=== PATIENT | male | born 1970 | race Caucasian/White ===

== ENCOUNTER 2017-02-13 16:43 | Observation (INO) | payer OTHER ==
--- NOTE | 2017-02-13 16:50 | PDOC ---
History of Present Illness - History of Present Illness Initial Comments: 02/13/17 16:53 The patient is a 46 year old male, with no significant past medical history, who presents to the emergency department with a cat bite to his right forearm sustained while in his home after his pet cat became startled from yelling yesterday at 10AM. The patient states the bite has become increasingly more red and painful. He also reports feeling like my elbow is stiffening. The patient reportedly used hydrogen peroxide on the bite. He states he has been icing the bite. The patient states he has owned the cat for two years and denies any abnormal behavior from the animal. He denies chest pain, shortness of breath, headache and dizziness. He denies fever, chills, nausea, vomit, diarrhea and constipation. He denies dysuria, frequency, urgency and hematuria. Allergies: penicillins <Kiarra Sultana - Last Filed: 02/13/17 16:53> <Rosey Esposito - Last Filed: 02/14/17 07:27> - General Chief Complaint: Bite Stated Complaint: RT ARM CAT BITE Past History <Kiarra Sultana - Last Filed: 02/13/17 16:53> - Suicide/Smoking/Psychosocial Hx Smoking Status: No Smoking History: Never smoked Number of Cigarettes Smoked Daily: 0 Hx Alcohol Use: No <Rosey Esposito - Last Filed: 02/14/17 07:27> - Past Medical History Allergies/Adverse Reactions: Allergies Allergy/AdvReac Type Severity Reaction Status Date / Time Penicillins Allergy Unknown Hives Verified 02/13/17 16:44 Home Medications: Ambulatory Orders Aspirin [ASA -] 81 mg PO WEEKLY PRN 02/13/17 Review of Systems - Review of Systems Able to Perform ROS?: Yes Comments:: 02/13/17 16:54 GENERAL/CONSTITUTIONAL: No fever or chills. No weakness. HEAD, EYES, EARS, NOSE AND THROAT: No change in vision. No ear pain or discharge. No sore throat. CARDIOVASCULAR: No chest pain or shortness of breath. RESPIRATORY: No cough, wheezing, or hemoptysis. GASTROINTESTINAL: No nausea, vomiting, diarrhea or constipation. GENITOURINARY: No dysuria, frequency, or change in urination. MUSCULOSKELETAL: No joint or muscle swelling or pain. No neck or back pain. SKIN: (+) redness and pain to cat bite on right forearm. NEUROLOGIC: No headache, vertigo, loss of consciousness, or change in strength/ sensation. ENDOCRINE: No increased thirst. No abnormal weight change. HEMATOLOGIC/LYMPHATIC: No anemia, easy bleeding, or history of blood clots. ALLERGIC/IMMUNOLOGIC: No hives or skin allergy. <Kiarra Sultana - Last Filed: 02/13/17 16:53> *Physical Exam - Physical Exam Comments: GENERAL: Awake, alert, and fully oriented, in no acute distress HEAD: No signs of trauma EYES: PERRLA, EOMI, sclera anicteric, conjunctiva clear ENT: Auricles normal inspection, hearing grossly normal, nares patent, oropharynx clear without exudates. Moist mucosa NECK: Normal ROM, supple, no lymphadenopathy, JVD, or masses LUNGS: Breath sounds equal, clear to auscultation bilaterally. No wheezes, and no crackles HEART: Regular rate and rhythm, normal S1 and S2, no murmurs, rubs or gallops ABDOMEN: Soft, nontender, normoactive bowel sounds. No guarding, no rebound. No masses EXTREMITIES: Normal range of motion, no edema. No clubbing or cyanosis. No cords, erythema, or tenderness NEUROLOGICAL: Cranial nerves II through XII grossly intact. Normal speech, normal gait SKIN: Warm, Dry, normal turgor. R forearm with large area of cellulitis surrounding 4 puncture hubbard, +lymphatic streaking. <Rosey Esposito - Last Filed: 02/14/17 07:27> ED Treatment Course - LABORATORY CBC & Chemistry Diagram: 02/13/17 17:28 02/13/17 17:28 <Rosey Esposito - Last Filed: 02/14/17 07:27> Medical Decision Making - Medical Decision Making Pt is s/p cat bite one day ago, now with rapidly worsening cellulitis, lymphatic streaking. He was covered with rocephin and flagyl in the ED. Cellulitis was outlined in pen to monitor progress. Cat is a known cat, no history of aggressive behavior, rabies is extremely unlikely (has been living in the house for 2 years). Admitted to hospitalist. <Rosey Esposito - Last Filed: 02/14/17 07:27> *DC/Admit/Observation/Transfer - Attestations Scribe Attestion: 02/13/17 16:55 Documentation prepared by Kiarra Sultana, acting as senior medical director for Rosey Esposito MD <Kiarra Sultana - Last Filed: 02/13/17 16:53> - Discharge Dispostion Admit: Yes <Rosey Esposito - Last Filed: 02/14/17 07:27> Diagnosis at time of Disposition: Cellulitis of forearm, right Cat bite of forearm Qualifiers: Encounter type: initial encounter Laterality: right Qualified Code(s): S51.851A - Open bite of right forearm, initial encounter - Discharge Dispostion Condition at time of disposition: Stable
[2017-02-13] MEDS ORDERED: CEFTRIAXONE 1 GM in DEXTROSE 5%-WATER - 50 ML IVPB ONE (16:52)
[2017-02-13] MEDS ORDERED: METRONIDAZOLE 500 MG PREMIXED 500 MG/100 ML MG IVPB ONE ×2 (16:52→17:34)
[2017-02-13] MEDS ORDERED: cefTRIAXone SODIUM 1 GM VIAL ONE (17:34)
[2017-02-13 17:50] LABS: BASO % 0.8 % (0-2.0); EOS % 0.5 % (0-4.5); HEMATOCRIT 46.1 % (35.4-49); HEMOGLOBIN 15.8 GM/dl (11.7-16.9); LYMPH % 19.7 % (8-40); MCHC 34.2 g/dl (32.0-35.9); MEAN CELL VOLUME 93.6 fl (80-96); MEAN PLT VOLUME 9.4 fl (7.5-11.1); MONO % 4.3 % (3.8-10.2); NEUT % 74.7 % (42.8-82.8); PLATELET COUNT 229 K/MM3 (134-434); RBC 4.92 M/mm3 (4.00-5.60); RDW 12.6 % (11.9-15.9); WHITE BLOOD COUNT 13.6 K/mm3 (4.0-10.8)
[2017-02-13 17:54] LABS: ALBUMIN 4.3 g/dl (3.5-5.0); ALK PHOS 103 U/L (32-92); ANION GAP 9 (8-16); BILIRUBIN,TOTAL 1.1 mg/dl (0.2-1.0); BLOOD UREA NITROGEN 14 mg/dl (7-18); CALCIUM 9.4 mg/dl (8.4-10.2); CHLORIDE 101 mmol/L (98-107); CO2 25 mmol/L (22-28); GLUCOSE,RANDOM 100 mg/dl (74-106); POTASSIUM 3.7 mmol/L (3.5-5.1); SGOT/AST 18 U/L (10-42); SGPT/ALT 13 U/L (10-40); SODIUM 135 mmol/L (136-145); TOT PROT 7.2 g/dl (6.4-8.3)
[2017-02-13] MEDS ORDERED: KETOROLAC TROMETHAMINE 30 MG/1 ML VIAL ONE (18:51)
[2017-02-13] MEDS ORDERED: KETOROLAC TROMETHAMINE 30 MG/1 ML VIAL IVPUSH ONE (18:51)
--- NOTE | 2017-02-13 20:18 | HP ---
CHIEF COMPLAINT: Increased Redness and swelling to R- Forearm s/p cat bite PCP: HISTORY OF PRESENT ILLNESS: This is a 46 y/o man with a past medical history of Anxiety. Who presents to the ED with redness, swelling, increased streaking to R- forearm since being bit by his mother's cat x1 day. Patient reports that the cat became startled and bit him. The patient reports having flexion and gripping difficulty yesterday, but notes improvement today. He reports increased tenderness to palpation to the lateral anterior aspect of his right forearm. The patient reports that the cat is an indoor cat, but he is unsure of the cat's vaccine status. The patient is not up to date with his Tetanus vaccine. He reports cleaning the wound with Hydrogen Peroxide and using Bacitracin. The patient denies fever, chills, cough, dizziness, SOB, CP, AP, N/V/D, constipation, dysuria. ER course was notable for: (1) WBC 13.6 (2) Xray right arm-pending (3) Recent Travel: None PAST MEDICAL HISTORY: Anxiety PAST SURGICAL HISTORY: Denies Social History: Smoking: Never Alcohol: Denies Drugs: Denies Family History: Non-contributory Allergies Penicillins Allergy (Unknown, Verified 02/13/17 16:44) Hives HOME MEDICATIONS: Home Medications Medication Instructions Recorded Aspirin [ASA -] 81 mg PO DAILY 02/13/17 REVIEW OF SYSTEMS CONSTITUTIONAL: Absent: fever, chills, diaphoresis, generalized weakness, malaise, loss of appetite, weight change HEENT: Absent: rhinorrhea, nasal congestion, throat pain, throat swelling, difficulty swallowing, mouth swelling, ear pain, eye pain, visual changes CARDIOVASCULAR: Absent: chest pain, syncope, palpitations, irregular heart rate, lightheadedness , peripheral edema RESPIRATORY: Absent: cough, shortness of breath, dyspnea with exertion, orthopnea, wheezing, stridor, hemoptysis GASTROINTESTINAL: Absent: abdominal pain, abdominal distension, nausea, vomiting, diarrhea, constipation, melena, hematochezia GENITOURINARY: Absent: dysuria, frequency, urgency, hesitancy, hematuria, flank pain, genital pain MUSCULOSKELETAL: Absent: myalgia, arthralgia, joint swelling, back pain, neck pain SKIN: redness, swelling, streaking to right forearm Absent: rash, itching, pallor HEMATOLOGIC/IMMUNOLOGIC: Absent: easy bleeding, easy bruising, lymphadenopathy, frequent infections ENDOCRINE: Absent: unexplained weight gain, unexplained weight loss, heat intolerance, cold intolerance NEUROLOGIC: Absent: headache, focal weakness or paresthesias, dizziness, unsteady gait, seizure, mental status changes, bladder or bowel incontinence PSYCHIATRIC: anxiety Absent: depression, suicidal or homicidal ideation, hallucinations. PHYSICAL EXAMINATION Vital Signs - 24 hr 02/13/17 16:43 Temperature 98.5 F Pulse Rate 78 Respiratory 20 Rate Blood Pressure 134/81 O2 Sat by Pulse 97 Oximetry (%) GENERAL: Awake, alert, and fully oriented, in no acute distress. HEAD: Normal with no signs of trauma. EYES: Pupils equal, round and reactive to light, extraocular movements intact, sclera anicteric, conjunctiva clear. No lid lag. EARS, NOSE, THROAT: Ears normal, nares patent, oropharynx clear without exudates. Moist mucous membranes. NECK: Normal range of motion, supple without lymphadenopathy, JVD, or masses. LUNGS: Breath sounds equal, clear to auscultation bilaterally. No wheezes, and no crackles. No accessory muscle use. HEART: Regular rate and rhythm, normal S1 and S2 without murmur, rub or gallop. ABDOMEN: Soft, nontender, not distended, normoactive bowel sounds, no guarding, no rebound, no masses. No hepatomegaly or splenomegaly. MUSCULOSKELETAL: Normal range of motion at all joints. No bony deformities or tenderness. No CVA tenderness. UPPER EXTREMITIES: 2+ pulses, warm, well-perfused. No cyanosis. No clubbing. No peripheral edema. LOWER EXTREMITIES: 2+ pulses, warm, well-perfused. No calf tenderness. No peripheral edema. NEUROLOGICAL: Cranial nerves II-XII intact. Normal speech. Gait not observed. PSYCHIATRIC: Cooperative. Good eye contact. Appropriate mood and affect. SKIN: +erythematous, 4 puncture wounds to the dorsal aspect of right forearm, non-fluctuant, tracking noted above outer parameter. Warm, dry, normal capillary refill. Laboratory Results - last 24 hr 02/13/17 02/13/17 17:28 17:28 WBC 13.6 H RBC 4.92 Hgb 15.8 Hct 46.1 MCV 93.6 MCH 32.0 MCHC 34.2 RDW 12.6 Plt Count 229 MPV 9.4 Neutrophils % 74.7 Lymphocytes % 19.7 Monocytes % 4.3 Eosinophils % 0.5 Basophils % 0.8 Sodium 135 L Potassium 3.7 Chloride 101 Carbon Dioxide 25 Anion Gap 9 BUN 14 Creatinine 1.0 Creat Clearance w eGFR > 60 Random Glucose 100 Calcium 9.4 Total Bilirubin 1.1 H AST 18 ALT 13 Alkaline Phosphatase 103 H Total Protein 7.2 Albumin 4.3 ASSESSMENT/PLAN: This is a 46 y/o man with a PMHx of Anxiety. Admitted for Cellulitis of R- forearm secondary to cat bite FEN - PO Fluids - Replete lytes prn - Regular Diet Code Status: Full Code Dispo: Obs Problem List - Problem (1) Cellulitis of forearm, right Assessment/Plan: - s/p Cat bite - Concerning for Pasturella Infection - Blood Cultures- pending - +Leukocytosis - Ceftriaxone, Metronidazole given in ED - Will add Levofloxacin and continue Metronidazole secondary to PCN allergy - Repeat CBC in am - Elevate extremity - Neuro checks - Monitor vitals - Motrin prn Code(s): L03.113 - CELLULITIS OF RIGHT UPPER LIMB (2) Cat bite of forearm Assessment/Plan: - See Above - Wound Care Code(s): S51.859A - OPEN BITE OF UNSPECIFIED FOREARM, INITIAL ENCOUNTER; W55.01XA - BITTEN BY CAT, INITIAL ENCOUNTER Qualifiers: Encounter type: initial encounter Laterality: right Qualified Code(s): S51.851A - Open bite of right forearm, initial encounter; W55.01XA - Bitten by cat, initial encounter; W55.01XA - Bitten by cat, initial encounter (3) Generalized anxiety disorder with panic attacks Assessment/Plan: - Patient reports being seen in the past at [facility] for psychotherapy, currently on no meds. - He reports having an increase in panic attacks and feeling anxious over the last 2 months - Appreciate Psych eval for recommendations - Ativan prn Code(s): F41.1 - GENERALIZED ANXIETY DISORDER; F41.0 - PANIC DISORDER [EPISODIC PAROXYSMAL ANXIETY] (4) DVT prophylaxis Assessment/Plan: - OOB - Lovenox SQ Code(s): [id number] - Visit type - Emergency Visit Emergency Visit: Yes ED Registration Date: 02/13/17 Care time: The patient presented to the Emergency Department on the above date and was hospitalized for further evaluation of their emergent condition. - New Patient This patient is new to me today: Yes Date on this admission: 02/13/17 - Critical Care Critical Care patient: No
[2017-02-13 20:54] VITALS: BMI 22.1
[2017-02-13] MEDS ORDERED: TETANUS AND DIPHTHERIA TOXOID 0.5 ML DISP.SYRIN IM ONE ×2 (23:05→23:45)
[2017-02-14] MEDS: METRONIDAZOLE 500 MG PREMIXED 500 MG/100 ML MG IVPB SCH ×2 (01:12→09:33)
[2017-02-14] MEDS: LORazepam 0.5 MG TABLET PO PRN (05:57)
--- NOTE | 2017-02-14 08:10 | PN ---
Physical Exam: SUBJECTIVE: Patient seen and examined at bedside. Currently afebrile, states has some pressure to site of right forearm but pain meds worked "alittle". He states the redness has decreased to a more "pink" color but the tenderness to touch continues and it spread slightly. The area was marked out and shows some minor extension (noted on beny out) OBJECTIVE: Vital Signs Period Temp Pulse Resp BP Sys/Boston Pulse Ox Last 24 Hr 98.4 F-98.7 F 62-78 17-20 109-134/76-81 97-99 GENERAL: The patient is awake, alert, and fully oriented, in no acute distress. some anxiety about needles per pt statement HEAD: Normal with no signs of trauma. LUNGS: Breath sounds equal, clear to auscultation bilaterally, no wheezes, no crackles, no accessory muscle use. HEART: Regular rate and rhythm, S1, S2 without murmur, rub or gallop. ABDOMEN: Soft, nontender, nondistended, normoactive bowel sounds, no guarding, no rebound, no hepatosplenomegaly, no masses. EXTREMITIES: 2+ pulses, warm, well-perfused, + right forearm dorsal noted to be marked with pen for size of cellulitis, 4 puncture hubbard from cat with scab, minor extension from marking now redrawn with pink/red coloring and warmth and swelling. edema. NEUROLOGICAL: Cranial nerves II through XII grossly intact. Normal speech, gait not observed. PSYCH: Normal mood, normal affect. SKIN: Warm, dry, normal turgo in general but noted cellulitis to upper right extremity Laboratory Results - last 24 hr 02/13/17 02/13/17 17:28 17:28 WBC 13.6 H RBC 4.92 Hgb 15.8 Hct 46.1 MCV 93.6 MCH 32.0 MCHC 34.2 RDW 12.6 Plt Count 229 MPV 9.4 Neutrophils % 74.7 Lymphocytes % 19.7 Monocytes % 4.3 Eosinophils % 0.5 Basophils % 0.8 Sodium 135 L Potassium 3.7 Chloride 101 Carbon Dioxide 25 Anion Gap 9 BUN 14 Creatinine 1.0 Creat Clearance w eGFR > 60 Random Glucose 100 Calcium 9.4 Total Bilirubin 1.1 H AST 18 ALT 13 Alkaline Phosphatase 103 H Total Protein 7.2 Albumin 4.3 Active Medications Generic Name Dose Route Start Last Admin Trade Name Freq PRN Reason Stop Dose Admin Enoxaparin Sodium 40 mg 02/14/17 10:00 Lovenox - SQ DAILY LAYLA Metronidazole 500 mg in 100 mls @ 100 mls/hr 02/14/17 02:00 02/14/17 01:12 Flagyl 500mg Premixed Ivpb - IVPB 100 mls/hr Q8H-IV LAYLA Administration Levofloxacin 500 mg in 100 mls @ 100 mls/hr 02/14/17 10:00 Levaquin 500 Mg Premixed Ivpb - IVPB DAILY LAYLA Ibuprofen 400 mg 02/14/17 01:00 Motrin - PO Q6H PRN PAIN Influenza Virus Vaccine Quadrival 60 mcg 02/14/17 10:00 Flulaval Quad [id number] IM 02/14/17 10:01 .ONCE ONE Lorazepam 1 mg 02/14/17 02:15 02/14/17 05:57 Ativan - PO 1 mg Q12H PRN Administration ANXIETY ASSESSMENT/PLAN: This 46 yr old male with recent cat bit by his mothers indoor cat (unknown vaccine history) developed cellulitis to the right upper forearm causing redness , swelling, pain and elevated white count 1. right arm cellulitis -received tetanus in ED -continue ABT -ID consult pending -elevate extremity -warm compress -pain meds, toradol for now -WBC elevated will trend 2. Severe anxiety -currently pt states anxiety is ok but nervous about needles and IV's -continue with ativan as needed -pending consult with psych 3. FEN -po hydration and nutrition 4. DVT/GI -lovenox -protonix 4. Admission for IV ABT for right arm cellulitis Visit type - Emergency Visit Emergency Visit: Yes ED Registration Date: 02/13/17 Care time: The patient presented to the Emergency Department on the above date and was hospitalized for further evaluation of their emergent condition. - New Patient This patient is new to me today: Yes Date on this admission: 02/14/17 - Critical Care Critical Care patient: No - Discharge Referral Referred to [facility] No
[2017-02-14 08:51] LABS: BASO % 0.8 % (0-2.0); EOS % 1.4 % (0-4.5); HEMATOCRIT 42.3 % (35.4-49); HEMOGLOBIN 13.8 GM/dl (11.7-16.9); LYMPH % 32.2 % (8-40); MCH 31.1 pg (25.7-33.7); MCHC 32.7 g/dl (32.0-35.9); MEAN PLT VOLUME 10.2 fl (7.5-11.1); MONO % 6.7 % (3.8-10.2); NEUT % 58.9 % (42.8-82.8); PLATELET COUNT 186 K/MM3 (134-434); RBC 4.45 M/mm3 (4.00-5.60); RDW 12.4 % (11.9-15.9); WHITE BLOOD COUNT 10.6 K/mm3 (4.0-10.8)
[2017-02-14 08:59] LABS: ANION GAP 7 (8-16); BLOOD UREA NITROGEN 14 mg/dl (7-18); CALCIUM 8.9 mg/dl (8.4-10.2); CHLORIDE 104 mmol/L (98-107); CO2 26 mmol/L (22-28); CREATININE 0.9 mg/dl (0.6-1.3); GLUCOSE,RANDOM 93 mg/dl (74-106); POTASSIUM 4.2 mmol/L (3.5-5.1); SODIUM 137 mmol/L (136-145)
[2017-02-14] MEDS: PANTOPRAZOLE 40 MG TABLET (FP) PO SCH (09:33)
[2017-02-14] MEDS: LEVOFLOXACIN 500 MG IVPB 500 MG/100 ML BAG IVPB SCH (09:34)
[2017-02-14] MEDS: ENOXAPARIN NA (PORCINE) 40 MG/0.4 ML DISP.SYRIN SQ SCH (09:34)
[2017-02-14] MEDS ORDERED: FLU VACCINE QUAD 60 MCG/0.5 ML (MDV 17-18) IM ONE (10:00)
--- NOTE | 2017-02-14 11:03 | PN ---
Progress Note (short form) - Note Progress Note: ID Full noted dictated Selected Entries 02/14/17 10:22 Temperature 98.5 F Pulse Rate 59 L Respiratory 18 Rate Blood Pressure 105/59 Microbiology Laboratory Tests 02/13/17 02/14/17 17:28 08:00 WBC 13.6 H 10.6 Hgb 15.8 13.8 D Hct 42.3 Plt Count 229 186 Assessment Infected cat bites with forearm cellulitis Plan Tdap if not given Given PCN urticaria Clinda and Levoflox IV and po at discharge fine ( many organisms may cause this in addition to Pasturella) Problem List - Problems (1) Cat bite of forearm Code(s): S51.859A - OPEN BITE OF UNSPECIFIED FOREARM, INITIAL ENCOUNTER; W55.01XA - BITTEN BY CAT, INITIAL ENCOUNTER Qualifiers: Encounter type: initial encounter Laterality: right Qualified Code(s): S51.851A - Open bite of right forearm, initial encounter; W55.01XA - Bitten by cat, initial encounter; W55.01XA - Bitten by cat, initial encounter
[2017-02-14] MEDS: IBUPROFEN 400 MG TABLET (FP) PO PRN ×2 (11:42→19:41)
--- NOTE | 2017-02-14 12:02 | CONS ---
DATE OF CONSULTATION: DATE OF DICTATION: 02/14/2017 This is a 46-year-old male with no significant past medical history, admitted to the hospital for management of an infected cat bite on his right forearm. This was sustained 2 days prior to admission and involved 2 bites on his anterior forearm from his mother's cat, which she has had as an indoor pet for 2 years. He subsequently developed pain, redness, and swelling in the forearm, for which he is now admitted. He did use hydrogen peroxide at home. He denied any fever or chills. He has no other significant past medical history and states that he is currently unemployed as a result of psychiatric issues stemming from an anxiety disorder. He is on no medications and has allergies to PENICILLIN manifesting as urticaria. SOCIAL HISTORY: Nonsmoker and he denies any drug use. Family history and review of systems noncontributory. PHYSICAL EXAMINATION: General: He was an alert male in no acute distress. Vital Signs: Temperature was 98.4, pulse 64, blood pressure 109/78, respirations 18. Neck: Supple without adenopathy. Lungs: Clear to percussion and auscultation. Heart: S1, S2. Regular rhythm without audible murmur. Abdomen: Soft, nontender, without organomegaly. Extremities: Diffuse swelling of the right mid forearm with confluent erythema above the wrist and below the elbow. Four puncture hubbard were noted, representing 2 cat bites and no fluctuance was evident. The white count was 13.6, hemoglobin 15.8, platelets 229. White count today 10.6. Chemistries within normal limits. ASSESSMENT: Infected cat bite. Multiple organisms may be responsible for this, including but not limited to Pasteurella; in addition, staphylococcus, streptococcus, and Pasturella anaerobes considered. He has a history of PENICILLIN urticaria and I am reluctant to give him a cephalosporin, therefore, will treat him for staphylococcus and streptococcus coverage with clindamycin intravenously. He is already on Levaquin, which will also cover Pasteurella and other gram-negative organisms. The drugs can be switched to their oral equivalents upon discharge once he is better , and an HIV test should be obtained for completeness screening. KENROY STORY M.D. [id number] [facility]
--- NOTE | 2017-02-14 15:41 | CON.PSY ---
Psychiatry Consult Chief Complaint: I have anxiety and panic attacks. I have financial prpoblems. Symptoms: reports: Anxiety, Panic Attacks - Previous Psychiatric Treatment Outpatient: More than 6 mos ago Inpatient: None - Previous Substance Abuse Treatment Outpatient: None Inpatient: None - Reason for Previous Treatment Reason for Previous Treatment: Anxiety or Panic Disorder - Current Medications Current Medications: Active Medications Enoxaparin Sodium (Lovenox -) 40 mg SQ DAILY [facility] Last Admin: 02/14/17 09:34 Dose: Not Given Escitalopram Oxalate (Lexapro -) 5 mg PO DAILY [facility] Levofloxacin (Levaquin 500 Mg Premixed Ivpb -) 500 mg in 100 mls @ 100 mls/hr IVPB DAILY [facility] Last Admin: 02/14/17 09:34 Dose: 100 mls/hr Clindamycin Phosphate (Cleocin 600 Mg Premix Ivpb -) 600 mg in 50 mls @ 100 mls /hr IVPB Q8H-IV [facility] Ibuprofen (Motrin -) 400 mg PO Q6H PRN PRN Reason: PAIN Last Admin: 02/14/17 11:42 Dose: 400 mg Lorazepam (Ativan -) 1 mg PO Q12H PRN PRN Reason: ANXIETY Last Admin: 02/14/17 05:57 Dose: 1 mg Pantoprazole Sodium (Protonix -) 40 mg PO DAILY [facility] Last Admin: 02/14/17 09:33 Dose: 40 mg - Allergies Allergies: Allergies Allergy/AdvReac Type Severity Reaction Status Date / Time Penicillins Allergy Unknown Hives Verified 02/13/17 16:44 - Current Living Status Usual Living Arrangement: With Parent - Current Mental Status Evaluation Appearance: Well Groomed Attitude: Cooperative - Affect Affect: Full Range Appropriateness: Appropriate to Content - Mood Mood: Anxious - Speech/Language Expressive: Coherent - Psychomotor Activity Psychomotor Activity: Normal - Thought Process Thought Process: Intact - Thought Content Hallucinations: Absent Delusions: Absent - Self Perception Self Perception: No Impairment - Cognition Attention: Alert Orientation: Time Memory, Immediate Recall: Intact Memory, Short Term: 3/3 Memory, Remote with Promptin/3 - Concentration Serial Sevens Intact: Yes Simple Calculations Intact: Yes - Abstraction Proverb Interpretation: Intact Judgement: Intact - Insight Insight: Intact - Impulse Control Impulse Control: Good Control - Suicidal Ideation Suicidal Ideation: No - Homicidal Ideation Homicidal Ideation: No Assessment/Plan Start Lexapro 5mg po od for panic Disorder Return to [facility].
[2017-02-14] MEDS: CLINDAMYCIN 600MG PREMIX IVPB 600 MG/50 ML BAG IVPB SCH (17:14)
[2017-02-15] MEDS: LORazepam 0.5 MG TABLET PO PRN (00:25)
[2017-02-15] MEDS: CLINDAMYCIN 600MG PREMIX IVPB 600 MG/50 ML BAG IVPB SCH ×2 (01:14→09:22)
[2017-02-15] MEDS: IBUPROFEN 400 MG TABLET (FP) PO PRN ×2 (01:50→09:23)
[2017-02-15 06:09] VITALS: TEMP 97.9
--- NOTE | 2017-02-15 09:02 | PN ---
Progress Note, Physician History of Present Illness: No c/o R forearm pain No fever/ chills Tolerating antibiotics w/o adverse rxn Afebrile WBC improved BC (-) - Current Medication List Current Medications: Active Medications Enoxaparin Sodium (Lovenox -) 40 mg SQ DAILY [facility] Last Admin: 02/14/17 09:34 Dose: Not Given Escitalopram Oxalate (Lexapro -) 5 mg PO DAILY [facility] Levofloxacin (Levaquin 500 Mg Premixed Ivpb -) 500 mg in 100 mls @ 100 mls/hr IVPB DAILY [facility] Last Admin: 02/14/17 09:34 Dose: 100 mls/hr Clindamycin Phosphate (Cleocin 600 Mg Premix Ivpb -) 600 mg in 50 mls @ 100 mls /hr IVPB Q8H-IV [facility] Last Admin: 02/15/17 01:14 Dose: 100 mls/hr Ibuprofen (Motrin -) 400 mg PO Q6H PRN PRN Reason: PAIN Last Admin: 02/15/17 01:50 Dose: 400 mg Lorazepam (Ativan -) 1 mg PO Q12H PRN PRN Reason: ANXIETY Last Admin: 02/15/17 00:25 Dose: 1 mg Pantoprazole Sodium (Protonix -) 40 mg PO DAILY [facility] Last Admin: 02/14/17 09:33 Dose: 40 mg - Objective Vital Signs: Vital Signs Temperature 97.9 F 02/15/17 06:00 Pulse Rate 72 02/15/17 06:00 Respiratory Rate 18 02/15/17 06:00 Blood Pressure 117/73 02/15/17 06:00 O2 Sat by Pulse Oximetry (%) 97 02/15/17 06:00 Constitutional: Yes: Thin Eyes: Yes: Conjunctiva Clear Cardiovascular: Yes: Regular Rate and Rhythm, S1, S2 Respiratory: Yes: CTA Bilaterally Gastrointestinal: Yes: Normal Bowel Sounds, Soft. No: Tenderness Extremities: Yes: Other (Puncture wounds R forearm without drainage Erythema resolved from traced-out area No swelling) Neurological: Yes: Pre-Existing Deficit Labs: CBC, BMP 02/14/17 08:00 02/14/17 08:00 Assessment/Plan Cellulitis R forearm-resolved S/P cat bite PCN allergy Substitute po levaquin 500mg qd + po clindamycin 300mg tid x 7d
[2017-02-15 09:15] LABS: BASO % 0.7 % (0-2.0); EOS % 1.4 % (0-4.5); HEMATOCRIT 44.8 % (35.4-49); HEMOGLOBIN 15.1 GM/dl (11.7-16.9); LYMPH % 27.9 % (8-40); MCHC 33.8 g/dl (32.0-35.9); MEAN CELL VOLUME 94.9 fl (80-96); MEAN PLT VOLUME 9.6 fl (7.5-11.1); MONO % 5.4 % (3.8-10.2); NEUT % 64.6 % (42.8-82.8); PLATELET COUNT 199 K/MM3 (134-434); RBC 4.73 M/mm3 (4.00-5.60); RDW 12.5 % (11.9-15.9); WHITE BLOOD COUNT 8.7 K/mm3 (4.0-10.8)
[2017-02-15] MEDS: LEVOFLOXACIN 500 MG IVPB 500 MG/100 ML BAG IVPB SCH (09:23)
[2017-02-15] MEDS: PANTOPRAZOLE 40 MG TABLET (FP) PO SCH (09:23)
[2017-02-15] MEDS: ENOXAPARIN NA (PORCINE) 40 MG/0.4 ML DISP.SYRIN SQ SCH (09:23)
[2017-02-15] MEDS ORDERED: ESCITALOPRAM OXALATE 10 MG TABLET (FP) PO SCH (10:00)
--- NOTE | 2017-02-15 10:12 | DS ---
Physical Exam: SUBJECTIVE: Patient seen and examined, denies any tactile fever, reports minimal pain to the right upper extremity OBJECTIVE: This is a 46 y/o man with a past medical history of Anxiety. Who presents to the ED with redness, swelling, increased streaking to R- forearm since being bit by his mother's cat x1 day. Patient reports that the cat became startled and bit him. The patient reports having flexion and gripping difficulty yesterday, but notes improvement today. He reports increased tenderness to palpation to the lateral anterior aspect of his right forearm. The patient reports that the cat is an indoor cat, but he is unsure of the cat's vaccine status. The patient is not up to date with his Tetanus vaccine. He reports cleaning the wound with Hydrogen Peroxide and using Bacitracin. The patient denies fever, chills, cough, dizziness, SOB, CP, AP, N/V/D, constipation, dysuria. ER course was notable for: (1) WBC 13.6 (2) Xray right arm-pending Vital Signs Period Temp Pulse Resp BP Sys/Boston Pulse Ox Last 24 Hr 97.5 F-99.0 F 59-72 18-18 105-140/59-74 95-99 PHYSICAL EXAM GENERAL: The patient is awake, alert, and fully oriented, in no acute distress. HEAD: Normal with no signs of trauma. EYES: PERRL, extraocular movements intact, sclera anicteric, conjunctiva clear. ENT: Ears normal, nares patent, oropharynx clear without exudates, moist mucous membranes. NECK: Trachea midline, full range of motion, supple. LUNGS: Breath sounds equal, clear to auscultation bilaterally, no wheezes, no crackles, no accessory muscle use. HEART: Regular rate and rhythm, S1, S2 without murmur, rub or gallop. ABDOMEN: Soft, nontender, nondistended, normoactive bowel sounds, no guarding, no rebound, no hepatosplenomegaly, no masses. EXTREMITIES: 2+ pulses, warm, well-perfused, no edema. RIGHT UPPER EXTREMITY: multiple punctures wounds noted, no erythema noted no induration no fluctance noted, no erythema extending passed markings, less than 3 second capillary refill, +3 radial pulse NEUROLOGICAL: Cranial nerves II through XII grossly intact. Normal speech, gait not observed. PSYCH: Normal mood, normal affect. SKIN: Warm, dry, normal turgor, no rashes or lesions noted. LABS Laboratory Results - last 24 hr 02/14/17 02/14/17 02/15/17 11:00 11:00 07:30 WBC 8.7 RBC 4.73 Hgb 15.1 Hct 44.8 MCV 94.9 MCH 32.0 MCHC 33.8 RDW 12.5 Plt Count 199 MPV 9.6 Neutrophils % 64.6 Lymphocytes % 27.9 Monocytes % 5.4 Eosinophils % 1.4 Basophils % 0.7 C-Reactive Protein 3.9 H HIV 1&2 Antibody Screen Negative HIV P24 Antigen Negative Microbiology 02/13/17 17:17 Blood - Peripheral Venous Blood Culture - Preliminary NO GROWTH OBTAINED AFTER 24 HOURS, INCUBATION TO CONTINUE FOR 4 DAYS. 02/13/17 17:00 Blood - Peripheral Venous Blood Culture - Preliminary NO GROWTH OBTAINED AFTER 24 HOURS, INCUBATION TO CONTINUE FOR 4 DAYS. HOSPITAL COURSE: 1. Right arm cellulitis secondary to cat bite, tetanus given in the ED, treated with levaquin and clindamycin (02/14/17 - 02/15/17), tetanus given in the emergency department, blood cultures are negative to date, Dr Neves/Tavo, infectious disease physician consulted and followed. no leukocytosis noted, patient is afebrile. 2. anxiety, denies any suicidal or homicidal ideation, Dr Ackerman, psychiatry consulted, patient was started on lexapro upon the recommendation of psyciatry. PLAN - discharge home on levaquin and clindamycin - follow up with Dr Ferdinand Frost for wound check Date of Admission:02/13/17 Date of Discharge: 02/15/17 Minutes to complete discharge: 45 Discharge Summary Reason For Visit: CAT BITE TO FOREARM,CELLULITIS OF RIGHT FOREARM Current Active Problems Cat bite of forearm (Acute) Cellulitis of forearm, right (Acute) DVT prophylaxis (Acute) Generalized anxiety disorder with panic attacks (Acute) Condition: Stable - Instructions - Home Medications Comprehensive Discharge Medication List: Ambulatory Orders Aspirin [ASA -] 81 mg PO WEEKLY PRN 02/13/17 This patient is new to me today: Yes Date on this admission: 02/15/17 Emergency Visit: Yes ED Registration Date: 02/13/17 Care time: The patient presented to the Emergency Department on the above date and was hospitalized for further evaluation of their emergent condition. Critical Care patient: No - Discharge Referral Referred to [facility] No
[2017-02-15 10:16] LABS: ALBUMIN 3.8 g/dl (3.5-5.0); ALK PHOS 90 U/L (32-92); ANION GAP 8 (8-16); BLOOD UREA NITROGEN 16 mg/dl (7-18); CALCIUM 9.2 mg/dl (8.4-10.2); CHLORIDE 104 mmol/L (98-107); CO2 26 mmol/L (22-28); CREATININE 1.1 mg/dl (0.6-1.3); GLUCOSE,RANDOM 124 mg/dl (74-106); POTASSIUM 4.3 mmol/L (3.5-5.1); SGOT/AST 16 U/L (10-42); SGPT/ALT 13 U/L (10-40); SODIUM 138 mmol/L (136-145); TOT PROT 6.4 g/dl (6.4-8.3)
[2017-02-15 12:04] VITALS: BP 115/61; PULSE 77
[2017-02-15 13:31] LABS: BILIRUBIN,TOTAL 0.6 mg/dl (0.2-1.0)
== END 2017-02-15 11:43 | disposition home or self-care (01) ==
LOC: FER 16:43 → FM/S 18:51 → INTOOBSV 18:51 → OBSVTOIN 23:12 → INTOOBSV 23:12
PROVIDERS: ADMIT Hospitalist; ATTEND Nurse Practitioner Family
PROC: 3E03329 Introduction of Other Anti-infective into Peripheral Vein, Percutaneous Approach (ICD-10-PCS; principal; 2017-02-13)
PROC: 3E0334Z Introduction of Serum, Toxoid and Vaccine into Peripheral Vein, Percutaneous Approach (ICD-10-PCS; 2017-02-13)
PROC: 3E0333Z Introduction of Anti-inflammatory into Peripheral Vein, Percutaneous Approach (ICD-10-PCS; 2017-02-13)
DX: L03.113 Cellulitis of right upper limb (principal); S51.851A Open bite of right forearm, initial encounter; W55.01XA Bitten by cat, initial encounter; Y93.9 Activity, unspecified; Y92.009 Unspecified place in unspecified non-institutional (private) residence as the place of occurrence of the external cause; F41.1 Generalized anxiety disorder; Z88.0 Allergy status to penicillin
CPT/HCPCS: 36415; 73090-TC-RT; 80048; 80053; 85025; 86140; 87040; 87389; 90471; 90688; 96365; 96375; 99282-25; G0378

== ENCOUNTER 2019-11-23 10:41 | Emergency (ER) | payer OTHER ==
--- OUTSIDE RECORDS SUMMARY | 2019-11-23 10:47 | XMS ---
:1970 Author Organization [facility] Care Team Providers Name Role Phone Svitlana [place] Unavailable Unavailable Re-disclosure Warning The records that you are about to access may contain information from federally- assisted alcohol or drug abuse programs. If such information is present, then the following federally mandated warning applies: This information has been disclosed to you from records protected by federal confidentiality rules (42 CFR part 2). The federal rules prohibit you from making any further disclosure of this information unless further disclosure is expressly permitted by the written consent of the person to whom it pertains or as otherwise permitted by 42 CFR part 2. A general authorization for the release of medical or other information is NOT sufficient for this purpose. The Federal rules restrict any use of the information to criminally investigate or prosecute any alcohol or drug abuse patient.The records that you are about to access may contain highly sensitive health information, the redisclosure of which is protected by Article 27-F of the [facility] Public Health law. If you continue you may haveaccess to information: Regarding HIV / AIDS; Provided by facilities licensed or operated by the [facility] Office of Mental Health; or Provided by the [facility] Office for People With Developmental Disabilities. If such information is present, then the following [facility] mandated warning applies: This information has been disclosed to you from confidential records which are protected by state law. State law prohibits you from making any further disclosure of this information without the specific written consent of the person to whom it pertains, or as otherwise permitted by law. Any unauthorized further disclosure in violation of state law may result in a fine or half-way sentence or both. A general authorization for the release of medical or other information is NOT sufficient authorization for further disclosure. Encounters Encounter Providers Location Date Indications Data Source(s ) U Attender: Svitlana Andrews 11/01/2017 [facility] ([facility] 02:00:00 PM EDT [facility] [place]) Medications Medication Brand Start Product Dose Route Administrative Pharmacy [facility] Indications Reaction Description Data Name Date Form Instructions Instructions Source(s) quetiapine CARELOGIC (quetiapine (Family ) 300 mg Services tablet of extended [place] release 24 r) hr quetiapine [facility] (quetiapine (Family ) 50 mg Services tablet of [place] r) gabapentin CAR[facility] (gabapentin (Family ) 300 mg Services capsule of [place] r) gabapentin CAREL[facility]IC (gabapentin (Family ) 300 mg Services capsule of [place] r) quetiapine CARELOGIC (quetiapine (Family ) 50 mg Services tablet of [place] r) quetiapine CARELOGIC (quetiapine (Family ) 300 mg Services tablet of extended [place] release 24 r) hr clonazepam [facility] (clonazepam (Family ) 0.5 mg Services tablet of [place] r) sertraline [facility] (sertraline (Family ) 100 mg Services tablet of [place] r) quetiapine CARELOGIC (quetiapine (Family ) 300 mg Services tablet of extended [place] release 24 r) hr quetiapine CARELOGIC (quetiapine (Family ) 50 mg Services tablet of [place] r) gabapentin CARELOGIC (gabapentin (Family ) 300 mg Services capsule of [place] r) sertraline CARELOGIC (sertraline (Family ) 100 mg Services tablet of [place] r) gabapentin CARELOGIC (gabapentin (Family ) 300 mg Services capsule of [place] r) quetiapine CARELOGIC (quetiapine (Family ) 50 mg Services tablet of [place] r) clonazepam CARELOG[facility] (clonazepam (Family ) 0.5 mg Services tablet of [place] r) quetiapine CARELOGIC (quetiapine (Family ) 300 mg Services tablet of extended [place] release 24 r) hr quetiapine CARELOGIC (quetiapine (Family ) 50 mg Services tablet of [place] r) clonazepam CARELOGIC (clonazepam (Family ) 0.5 mg Services tablet of [place] r) sertraline CARELOGIC (sertraline (Family ) 100 mg Services tablet of [place] r) gabapentin CARELOGIC (gabapentin (Family ) 300 mg Services capsule of [place] r) quetiapine CARELOGIC (quetiapine (Family ) 300 mg Services tablet of extended [place] release 24 r) hr gabapentin CARELOGIC (gabapentin (Family ) 300 mg Services capsule of [place] r) gabapentin CARELOGIC (gabapentin (Family ) 300 mg Services capsule of [place] r) sertraline CARELOGIC (sertraline (Family ) 100 mg Services tablet of [place] r) clonazepam CARELOGIC (clonazepam (Family ) 0.5 mg Services tablet of [place] r) quetiapine CARELOGIC (quetiapine (Family ) 50 mg Services tablet of [place] r) quetiapine CARELOGIC (quetiapine (Family ) 300 mg Services tablet of extended [place] release 24 r) hr quetiapine CARELOGIC (quetiapine (Family ) 50 mg Services tablet of [place] r) quetiapine CARELOGIC (quetiapine (Family ) 300 mg Services tablet of extended [place] release 24 r) hr sertraline CARELOGIC (sertraline (Family ) 100 mg Services tablet of [place] r) clonazepam CARELOGIC (clonazepam (Family ) 0.5 mg Services tablet of [place] r) quetiapine CARELOGIC (quetiapine (Family ) 300 mg Services tablet of extended [place] release 24 r) hr clonazepam CARELOGIC (clonazepam (Family ) 0.5 mg Services tablet of [place] r) quetiapine CARELOGIC (quetiapine (Family ) 50 mg Services tablet of [place] r) gabapentin CARELOGIC (gabapentin (Family ) 300 mg Services capsule of [place] r) sertraline CARELOGIC (sertraline (Family ) 100 mg Services tablet of [place] r) quetiapine CARELOGIC (quetiapine (Family ) 300 mg Services tablet of [place] r) Neurontin CARELOGIC (gabapentin (Family ) 300 mg Services capsule of [place] r) clonazepam CARELOGIC (clonazepam (Family ) 0.5 mg Services tablet of [place] r) sertraline CARELOGIC (sertraline (Family ) 100 mg Services tablet of [place] r) Insurance Providers Payer name Policy type Policy ID Covered Covered alliance party's Policy P leeroy / Coverage alliance party ID relationship to Jett Inf ormation type jett [employer] MEDICAID [id number] [place] Medicaid Self [facility] Surgeries/Procedures Procedure Description Date Indications Data Source(s) [address] 45-50 Min Regular 07/31/2019 [facility] ([facility] 12:00:00 AM EDT [facility]) [id number] 45-50 Min Regular 07/31/2019 CAR[facility] (Family [facility] 12:00:00 AM EDT Services [facility]) [id number] 45-50 Min Regular 07/27/2019 [facility] (Family [facility] 12:00:00 AM EDT Services [facility]) [phone] 45-50 Min Regular 07/27/2019 CAREL[facility] (Family [facility] 12:00:00 AM EDT Services [facility]) [phone] 45-50 Min Regular 06/29/2019 CAREL[facility] (Family [facility] 12:00:00 AM EDT Services [facility]) [phone] 45-50 Min Regular 06/29/2019 CAREL[facility] (Family Therapy 12:00:00 AM EDT Services [facility]) [phone] 45-50 Min Regular 06/29/2019 CAREL[facility] (Family [facility] 12:00:00 AM EDT Services [facility]) [id number] 45-50 Min Regular 06/26/2019 CAREL[facility] (Family [facility] 12:00:00 AM EDT Services [facility]) [phone] 45-50 Min Regular 06/26/2019 CAREL[facility] (Family Therapy 12:00:00 AM EDT Services [facility]) [id number] 45-50 Min Regular 06/26/2019 CARELOG[facility] (Family Therapy 12:00:00 AM EDT Services [facility]) [id number] 45-50 Min Regular 06/15/2019 CARELOG[facility] (Family Therapy 12:00:00 AM EDT Services [facility]) [phone] 45-50 Min Regular 06/15/2019 CARELOG[facility] (Family Therapy 12:00:00 AM EDT Services [facility]) [phone] 45-50 Min Regular 06/15/2019 CARELOG[facility] (Family Therapy 12:00:00 AM EDT Services [facility]) [id number] 45-50 Min Regular 06/12/2019 CARELOG[facility] (Family Therapy 12:00:00 AM EDT Services [facility]) [id number] 45-50 Min Regular 06/12/2019 CAREL[facility] (Family Therapy 12:00:00 AM EDT Services [facility]) [id number] 45-50 Min Regular 06/12/2019 CAREL[facility] (Family Therapy 12:00:00 AM EDT Services [facility]) [id number] 45-50 Min Regular 06/08/2019 CAREL[facility] (Family Therapy 12:00:00 AM EDT Services [facility]) [id number] 45-50 Min Regular 06/08/2019 CARELOG[facility] (Family Therapy 12:00:00 AM EDT Services [facility]) [address] 45-50 Min Regular 06/08/2019 CARELOG[facility] (Family [facility] 12:00:00 AM EDT Services [facility]) [id number] E and M-Established 06/07/2019 CARELOGI C (Family Client 3 12:00:00 AM EDT Services [facility]) [phone] E and M Add On-30 Min 06/07/2019 CARELO GIC (Family 12:00:00 AM EDT Services [facility]) [phone] E and M-Established 06/07/2019 CARELOGI C (Family Client 3 12:00:00 AM EDT Services [facility]) [phone] E and M Add On-30 Min 06/07/2019 CARELO GIC (Family 12:00:00 AM EDT Services [facility]) [phone] E and M-Established 06/07/2019 CARELOGI C (Family Client 3 12:00:00 AM EDT Services [facility]) [phone] E and M Add On-30 Min 06/07/2019 CARELO GIC (Family 12:00:00 AM EDT Services [facility]) [phone] 45-50 Min Regular 04/06/2019 CARELOG[facility] (Family Therapy 12:00:00 AM EST Services [facility]) [phone] 45-50 Min Regular 04/03/2019 CARELOG[facility] (Family Therapy 12:00:00 AM EST Services [facility]) [phone] 45-50 Min Regular 03/30/2019 CARELOG[facility] (Family Therapy 12:00:00 AM EST Services [facility]) [phone] 45-50 Min Regular 03/23/2019 CARELOGIC (Family Therapy 12:00:00 AM EST Services [facility]) [phone] 45-50 Min Regular 03/20/2019 CARELOGIC (Family Therapy 12:00:00 AM EST Services [facility]) [phone] 45-50 Min Regular 03/16/2019 CARELOGIC (Family Therapy 12:00:00 AM EST Services [facility]) [phone] 45-50 Min Regular 03/13/2019 CARELOGIC (Family Therapy 12:00:00 AM EST Services [facility])
--- NOTE | 2019-11-23 11:22 | TELE ---
HPI Do you have fever,cough or shortness of breath?: Yes - General Reason For Visit: COVID Time Seen by Provider: 11/23/19 11:17 History Source: Patient Exam Limitations: Clinical Condition - History of Present Illness Timing/Duration: momentarily, 1 week Severity: reports: moderate Associated Symptoms: reports: cough, fever/chills (improved), malaise. denies: diaphoresis, loss of appetite, nausea/vomiting, shortness of breath, weakness 11/23/19 11:18 Patient with no significant past medical history present to [facility] for Covid testing as a requirement to go to court. Patient reported had a fever overnight and has been having dry cough for the past week. Reported fever has improved this morning with no more fevers. Denies shortness of breath, palpitations, dizziness, nausea, vomiting. Denies any other symptoms. Patient report he has a court case in a few days and needs a negative Covid test to be able to go to court. Past History - Medical History Allergies/Adverse Reactions: Allergies Allergy/AdvReac Type Severity Reaction Status Date / Time Penicillins Allergy Unknown Hives Verified 02/13/17 16:44 Home Medications: Ambulatory Orders Aspirin [ASA -] 81 mg PO WEEKLY PRN 02/13/17 Clindamycin [Cleocin -] 300 mg PO TID #21 capsule 02/15/17 Escitalopram Oxalate [Lexapro -] 5 mg PO DAILY #30 tablet 02/15/17 levoFLOXacin [Levaquin -] 500 mg PO DAILY #7 tablet 02/15/17 Anemia: No Asthma: No Cancer: No Cardiac Disorders: No CVA: No COPD: No CHF: No Dementia: No Diabetes: No GI Disorders: No Disorders: No HTN: No Hypercholesterolemia: No Liver Disease: No Psychiatric Problems: Yes (ANXIETY,PANIC) Seizures: No Thyroid Disease: No - Psycho-Social/Smoking History Smoking Status: No Smoking History: Never smoked Have you smoked in the past 12 months: No Number of Cigarettes Smoked Daily: 0 Review of Systems - Review of Systems Able to Perform ROS?: Yes Limited Romansh proficient: No Constitutional: Yes: Chills, Fever, Malaise HEENTM: Yes: Symptoms Reported, See HPI, Nose Congestion. No: Eye Pain, Blurred Vision, Tearing, Recent change in vision, Double Vision, Cataracts, Ear Pain, Ocular Prothesis, Ear Discharge, Nose Pain, Tinnitus, Nose Bleeding, Hearing Loss, Throat Pain, Throat Swelling, Mouth Pain, Dental Problems, Difficulty Swallowing, Mouth Swelling, Other Respiratory: Yes: Symptoms reported, See HPI, Cough. No: Orthopnea, Shortness of Breath, SOB with Exertion, SOB at Rest, Stridor, Wheezing, Productive cough, Hemoptysis, Other Cardiac (ROS): No: Symptoms Reported, See HPI, Chest Pain, Edema, Irregular Heart Rate, Lightheadedness, Palpitations, Syncope, Chest Tightness, Other ABD/GI: No: Symptoms Reported, Nausea, Vomiting Musculoskeletal: No: Symptoms Reported Integumentary: No: Symptoms Reported, Rash Neurological: No: Symptoms reported, Headache, Dizziness All Other Systems: Reviewed and Negative *Physical Exam - Physical Exam General Appearance: Yes: Nourished, Appropriately Dressed. No: Apparent Distress HEENT: positive: Normal ENT Inspection Neck: negative: Supple Respiratory/Chest: negative: Respiratory Distress, Accessory Muscle Use Musculoskeletal: positive: Normal Inspection Extremity: positive: Normal Capillary Refill, Normal Inspection, Normal Range of Motion. negative: Cyanosis Integumentary: positive: Normal Color. negative: Cyanotic Neurologic: positive: Fully Oriented, Alert, Normal Mood/Affect, Normal Response, Motor Strength 5 - Medical Decision Making 11/23/19 11:20 Patient with no significant past medical history present to [facility] for Covid testing as a requirement to go to court. Patient reported had a fever overnight and has been having dry cough for the past week. Reported fever has improved this morning with no more fevers. Denies shortness of breath, palpitations, dizziness, nausea, vomiting. Denies any other symptoms. Patient report he has a court case in a few days and needs a negative Covid test to be able to go to court. Patient in no acute respiratory distress on exam. Discussed self quarantine instructions. Covid test ordered as per patient's request. Patient to go to [facility] testing [facility] today for Covid testing. Patient stable for discharge Discharge Diagnosis at time of Disposition: Encounter by telehealth for suspected COVID-19 - Referrals - Patient Instructions Discharge Instructions: [facility]-Coronavirus Instructions, [facility] COVID-19 Isolation Protocol - Discharge Disposition: HOME Condition at time of Disposition: Stable
== END 2019-11-23 11:23 | disposition home or self-care (01) ==
LOC: JVIRT 10:41
DX: Z03.818 Encounter for observation for suspected exposure to other biological agents ruled out (principal)
CPT/HCPCS: Q3014-GT

== ENCOUNTER 2019-11-23 14:59 | Emergency (ER) | payer OTHER ==
[2019-11-23 15:03] VITALS: BMI 24.3
[2019-11-23] MEDS ORDERED: ACETAMINOPHEN 1000 MG/100 ML VIAL (NON FORMULARY) IVPB ONE (15:09)
[2019-11-23] MEDS ORDERED: SODIUM CHLORIDE 1,000 ML IV STA (15:09)
[2019-11-23] MEDS ORDERED: ACETAMINOPHEN INJECTION 100 ML IVPB ONE (15:13)
[2019-11-23] MEDS ORDERED: ALBUTEROL SO4 2.5/IPRATROPIUM 0.5 INH SOL 3 ML VIAL.NEB. NEB ONE ×2 (15:15→15:16)
--- OUTSIDE RECORDS SUMMARY | 2019-11-23 15:19 | XMS ---
:1970 Author Organization [facility] Care Team Providers Name Role Phone Svitlana [...] is protected by Article 27-F of the [facility] Public Health law. If you continue you may haveaccess to information: Regarding HIV / AIDS; Provided by facilities licensed or operated by the [facility] Office of Mental Health; or Provided by the [facility] Office for People With Developmental Disabilities. If such information is present, then the following [facility] mandated warning applies: This information has been [...] law may result in a fine or nursing home sentence or both. A general authorization for the release of medical or other information is NOT sufficient authorization for further disclosure. Encounters Encounter Providers Location Date Indications Data Source(s ) U Attender: Svitlana Andrews 11/01/2017 [facility] ([facility] [place] 02:00:00 PM EDT [facility] [place]) Medications Medication Brand Start Product Dose Route [...] name Policy type Policy ID Covered Covered constitution party's Policy P leeroy / Coverage constitution party ID relationship to Jett Inf ormation type jett [employer] MEDICAID [id number] SP [id number] COMM PLAN [employer] MEDICAID [id number] SP [id number] COMM PLAN [place] Medicaid Self [facility] Healthcare Surgeries/Procedures Procedure Description Date Indications Data Source(s) [address] 45-50 Min Regular 07/31/2019 [facility] ([facility] 12:00:00 AM EDT Services [facility]) [phone] 45-50 Min Regular 07/31/2019 [facility] (Family [facility] 12:00:00 AM EDT Services [facility]) [id number] 45-50 Min Regular 07/27/2019 [facility] (Family [facility] 12:00:00 AM EDT Services [facility]) [id number] 45-50 Min Regular 07/27/2019 [facility] (Family Therapy 12:00:00 AM EDT Services [facility]) [id number] 45-50 Min Regular 06/29/2019 [facility] (Family Therapy 12:00:00 AM EDT Services [facility]) [id number] 45-50 Min Regular 06/29/2019 [facility] (Family [facility] 12:00:00 AM EDT Services [facility]) [id number] 45-50 Min Regular 06/29/2019 [facility] (Family Therapy 12:00:00 AM EDT Services [facility]) [id number] 45-50 Min Regular 06/26/2019 [facility] (Family Therapy 12:00:00 AM EDT Services [facility]) [phone] 45-50 Min Regular 06/26/2019 [facility] (Family Therapy 12:00:00 AM EDT Services [facility]) [id number] 45-50 Min Regular 06/26/2019 [facility] (Family Therapy 12:00:00 AM EDT Services [facility]) [id number] 45-50 Min Regular 06/15/2019 [facility] (Family Therapy 12:00:00 AM EDT Services [facility]) [id number] 45-50 Min Regular 06/15/2019 [facility] (Family Therapy 12:00:00 AM EDT Services [facility]) [id number] 45-50 Min Regular 06/15/2019 [facility] (Family Therapy 12:00:00 AM EDT Services [facility]) [phone] 45-50 Min Regular 06/12/2019 [facility] (Family Therapy 12:00:00 AM EDT Services [facility]) [id number] 45-50 Min Regular 06/12/2019 [facility] (Family Therapy 12:00:00 AM EDT Services [facility]) [id number] 45-50 Min Regular 06/12/2019 [facility] (Family Therapy 12:00:00 AM EDT Services [facility]) [id number] 45-50 Min Regular 06/08/2019 [facility] (Family Therapy 12:00:00 AM EDT Services [facility]) [id number] 45-50 Min Regular 06/08/2019 [facility] (Family Therapy 12:00:00 AM EDT Services [facility]) [id number] 45-50 Min Regular 06/08/2019 [facility] (Family Therapy 12:00:00 AM EDT Services [facility]) [id number] E and M-Established 06/07/2019 CAREL[facility]I C (Family Client 3 12:00:00 AM EDT Services [facility]) [id number] E and M Add On-30 Min 06/07/2019 CARELO GIC (Family 12:00:00 AM EDT Services [facility]) [phone] E and M-Established 06/07/2019 [facility] C (Family Client 3 12:00:00 AM EDT Services [facility]) [phone] E and M Add On-30 Min 06/07/2019 [facility]ELO G[facility] (Family 12:00:00 AM EDT Services [facility]) [phone] E and M-Established 06/07/2019 CAREL[facility]I C (Family Client 3 12:00:00 AM EDT Services [facility]) [id number] E and M Add On-30 Min 06/07/2019 [facility]ELO GIC (Family 12:00:00 AM EDT Services [facility]) [phone] 45-50 Min Regular 04/06/2019 [facility] (Family Therapy 12:00:00 AM EST Services [facility]) [id number] 45-50 Min Regular 04/03/2019 [facility] (Family Therapy 12:00:00 AM EST Services [facility]) [phone] 45-50 Min Regular 03/30/2019 [facility] (Family Therapy 12:00:00 AM EST Services [facility]) [phone] 45-50 Min Regular 03/23/2019 [facility] (Family Therapy 12:00:00 AM EST Services [facility]) [phone] 45-50 Min Regular 03/20/2019 [facility] (Family Therapy 12:00:00 AM EST Services [facility]) [phone] 45-50 Min Regular 03/16/2019 [facility] (Family Therapy 12:00:00 AM EST Services [facility]) [phone] 45-50 Min Regular 03/13/2019 [facility] (Family Therapy 12:00:00 AM EST Services [facility])
--- NOTE | 2019-11-23 15:21 | PDOC ---
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 Pt reported x3 weeks ago he developed black diarrhea, x2 weeks ago an intermittently productive yellow cough (usually while laying down), and x1 week ago intermittent fevers. Pt reported his fevers range around 101F, occur in the mornings, and usually break by the afternoon. Pt admitted to shortness of breath, CASE, generalized weakness. Pt had one episode of nausea/vomiting x1 week ago. ROS General: admitted to fever, chills, generalized weakness. HEENT: denied sore throat, rhinorrhea, ear pain. Cardiovascular: denied chest pain, palpitations, syncope, diaphoresis. Respiratory: admitted to shortness of breath, cough, sputum production. denied hemoptysis. Gastrointestinal: admitted to nausea, vomiting, diarrhea, black stools. denied abdominal pain, constipation, blood in stool. Genitourinary: denied dysuria, increased urinary frequency, hematuria, urinary incontinence, flank pain. Back: denied back pain. Musculoskeletal: denied joint pain, muscle pain, joint swelling. Neurological: denied headache, dizziness, numbness, tingling, weakness. Integumentary: denied rash, laceration, abrasion. Hematologic/Lymphatic: denied bruising or bleeding. PE Constitutional: Well-nourished, Well-developed, appearing stated age. HEENT: head is normocephalic, atraumatic. EOMI. PERRLA. Neck: supple. Full ROM. Cardiovascular: regular heart rhythm. Normal S1 and S2. no murmurs. no pericardial friction rub. Respiratory: decreased air movement bilaterally. clear to auscultation bilaterally. no crackles, rhonchi or wheezing. no stridor. Gastrointestinal: soft, flat, nontender. normal bowel sounds. no rebound, guarding, or masses. Extremities: peripheral pulses intact and equal. no lower extremity edema noted. Neurological: CN 2-12 grossly intact. moves all four extremities. Psych: awake, alert, oriented x3. follows commands. answers questions appropriately. Past History - Medical History Allergies/Adverse Reactions: Allergies Allergy/AdvReac Type Severity Reaction Status Date / Time Penicillins Allergy Unknown Hives Verified 11/23/19 15:04 Home Medications: Ambulatory Orders Acetaminophen [Tylenol -] 1,000 mg PO Q8H PRN #30 tablet 11/23/19 Albuterol Sulfate Inhaler - [Ventolin HFA Inhaler -] 1 - 2 inh PO Q4H PRN #1 inhaler 11/23/19 Gabapentin 0 mg PO TID 11/23/19 clonazePAM [Klonopin -] 0.5 mg PO DAILY 11/23/19 - Psycho-Social/Smoking History Smoking Status: No Smoking History: Never smoked Have you smoked in the past 12 months: No Number of Cigarettes Smoked Daily: 0 - Substance Abuse Hx (Audit-C & DAST Scrn) How often the patient has a drink containing alcohol: Never Score: In Men: 4 or > Positive; In Women: 3 or > Positive: 0 Screen Result (Pos requires Nsg. Audit-10AR): Negative In the last yr the pt used illegal drug/Rx for NonMed reason: No Score: Yes response is considered Positive: 0 Screen Result (Positive result requires Nsg. DAST-10): Negative *Physical Exam - Vital Signs Last Vital Signs Temp Pulse Resp BP Pulse Ox 98.9 F 72 17 96/63 98 11/23/19 14:59 11/23/19 14:59 11/23/19 14:59 11/23/19 14:59 11/23/19 14:59 ED Treatment Course - LABORATORY CBC & Chemistry Diagram: 11/23/19 15:18 11/23/19 15:11 Medical Decision Making - Medical Decision Making 49 year old male with above PMH presented to ED for diarrhea x3 weeks, cough x2 weeks, fever x1 week, associated with SOB/CASE. Initial Vital Signs Temp Pulse Resp BP Pulse Ox 98.9 F 72 17 96/63 98 11/23/19 14:59 11/23/19 14:59 11/23/19 14:59 11/23/19 14:59 11/23/19 14:59 Afebrile. No tachycardia. No tachypnea. Mild hypotension. No hypoxia on room air. EKG sinus rhythm. 11/23/19 16:35 CXR reported no focal infiltrates or acute process. Laboratory Last Values WBC 14.2 K/mm3 (4.0-10.8) H 11/23/19 15:18 RBC 4.88 M/mm3 (4.00-5.60) 11/23/19 15:18 Hgb 15.3 GM/dl (11.7-16.9) 11/23/19 15:18 Hct 44.8 % (35.4-49) 11/23/19 15:18 MCV 91.8 fl (80-96) 11/23/19 15:18 MCH 31.4 pg (25.7-33.7) 11/23/19 15:18 MCHC 34.2 g/dl (32.0-35.9) 11/23/19 15:18 RDW 13.9 % (11.9-15.9) D 11/23/19 15:18 Plt Count 267 K/MM3 (134-434) D 11/23/19 15:18 MPV 9.0 fl (7.5-11.1) 11/23/19 15:18 Absolute Neuts (auto) 8.7 K/mm3 11/23/19 15:18 Neutrophils % 61.8 % (42.8-82.8) 11/23/19 15:18 Lymphocytes % 31.4 % (8-40) 11/23/19 15:18 Monocytes % 4.0 % (3.8-10.2) 11/23/19 15:18 Eosinophils % 2.4 % (0-4.5) 11/23/19 15:18 Basophils % 0.4 % (0-2.0) 11/23/19 15:18 PT with INR 13.5 SEC (10.2-13.0) H 11/23/19 15:11 INR 1.21 (0.82-1.09) 11/23/19 15:11 PTT (Actin FS) 33.1 SECONDS (25.2-36.5) 11/23/19 15:11 Sodium 136 mmol/L (136-145) 11/23/19 15:11 Potassium 4.1 mmol/L (3.5-5.1) 11/23/19 15:11 Chloride 104 mmol/L (98-107) 11/23/19 15:11 Carbon Dioxide 23 mmol/L (21-32) 11/23/19 15:11 Anion Gap 9 MMOL/L (8-16) 11/23/19 15:11 BUN 16.0 mg/dl (7-18) 11/23/19 15:11 Creatinine 1.0 mg/dl (0.55-1.3) 11/23/19 15:11 Est GFR (CKD-EPI)AfAm 100.55 11/23/19 15:11 Est GFR (CKD-EPI)NonAf 86.76 11/23/19 15:11 Random Glucose 79 mg/dl (74-106) 11/23/19 15:11 Calcium 9.0 mg/dl (8.5-10) 11/23/19 15:11 Phosphorus 3.2 mg/dl (2.5-4.9) 11/23/19 15:11 Magnesium 1.9 mg/dL (1.8-2.4) 11/23/19 15:11 Total Bilirubin 0.6 mg/dl (0.2-1) 11/23/19 15:11 AST 16 U/L (15-37) 11/23/19 15:11 ALT 15 U/L (13-61) 11/23/19 15:11 Alkaline Phosphatase 108 U/L (45-117) 11/23/19 15:11 LD Total 141 U/L (84-246) 11/23/19 15:11 Total Protein 6.5 g/dl (6.4-8.2) 11/23/19 15:11 Albumin 3.9 g/dl (3.4-5.0) 11/23/19 15:11 Leukocytosis without left shift. No electrolyte abnormalities. No SANDEEP. No transaminitis. Pt reported improvement of shortness of breath with MDI inhaler Ambulatory sats 89% on room air. Pt rested for a little while, then wanted to try again on the ambulation sats, then was able to ambulate at 96%. Pt offered admission, but reported he would prefer to go home and continue symptomatic treatment. Pt given return precautions, reported he understood. MDI presribed. Zofran prescribed. Discharge - Discharge Information Problems reviewed: Yes Clinical Impression/Diagnosis: Shortness of breath, Diarrhea, Cough Condition: Improved Disposition: HOME - Admission No - Additional Discharge Information Prescriptions: Acetaminophen [Tylenol -] 1,000 mg PO Q8H PRN #30 tablet PRN Reason: Fever Albuterol Sulfate Inhaler - [Ventolin HFA Inhaler -] 1 - 2 inh PO Q4H PRN #1 inhaler PRN Reason: Shortness Of Breath - Follow up/Referral - Patient Discharge Instructions Patient Printed Discharge Instructions: DI for COVID-19 (Suspected or Confirmed ), [facility]Coronavirus Instructions, [facility] COVID-19 Isolation Protocol Additional Instructions: Follow up with your primary care doctor over the phone or via tele-health within 3 days regarding your ER visit. Your care is not complete until you follow up. You may have the COVID-19 infection, and you must quarantine as if you do. Even if your test is negative, I would suggest quarantining for two weeks or 7 days after you are symptom free. For body aches/pain take Tylenol 1,000 mg every 8 hours as needed. Do not take >4,000 mg in a 24 hour period, as this is toxic. Drink lots of clear fluids with electrolytes, like gatorade or pedialyte. Get 8 hours of sleep a day. I have prescribed you an inhaler to use as needed for shortness of breath every 4 hours. Return to the ER for chest pain, increasing shortness of breath, li ghtheadedness, passing out, vomiting, or any other new, worsening or concerning symptoms. - Post Discharge Activity Work/Back to School Note: Back to Work
[2019-11-23 16:08] LABS: BASO % 0.4 % (0-2.0); EOS % 2.4 % (0-4.5); HEMATOCRIT 44.8 % (35.4-49); HEMOGLOBIN 15.3 GM/dl (11.7-16.9); LYMPH % 31.4 % (8-40); MCH 31.4 pg (25.7-33.7); MCHC 34.2 g/dl (32.0-35.9); MEAN CELL VOLUME 91.8 fl (80-96); NEUT % 61.8 % (42.8-82.8); PLATELET COUNT 267 K/MM3 (134-434); RBC 4.88 M/mm3 (4.00-5.60); RDW 13.9 % (11.9-15.9); WHITE BLOOD COUNT 14.2 K/mm3 (4.0-10.8)
[2019-11-23 16:19] LABS: ACTIVATED PTT 33.1 SECONDS (25.2-36.5)
[2019-11-23 16:21] LABS: ALBUMIN 3.9 g/dl (3.4-5.0); BILIRUBIN,TOTAL 0.6 mg/dl (0.2-1); MAGNESIUM 1.9 mg/dL (1.8-2.4); PHOSPHOROUS 3.2 mg/dl (2.5-4.9); POTASSIUM 4.1 mmol/L (3.5-5.1); TOT PROT 6.5 g/dl (6.4-8.2)
[2019-11-23 16:23] LABS: INR 1.21 (0.82-1.09); PROTHROMBIN TIME (PATIENT) 13.5 SEC (10.2-13.0)
--- NOTE | 2019-11-23 16:35 | PDOC ---
Attending Attestation - Resident Resident Name: AliceSunshine - ED Attending Attestation I have performed the following: I have examined & evaluated the patient, The case was reviewed & discussed with the resident, I agree w/resident's findings & plan - HPI HPI: 11/23/19 16:36 relatively healthy 49y/o M history of etoh and marijuana use but no longer active, scheduled for court case next week so presents for r/o covid in setting of viral-type illness over the last 2 weeks. pt told his officer about sxs of diarrhea, myalgia, slight cough, fever intermittently for 2 weeks. no wt loss/night sweats. no known exposures, no recent travel. pt initially called into virtual urgent care for outpt covid testing, then signed in here to be evaluated no acute complaints at this time - Physicial Exam PE: 11/23/19 16:38 afebrile, vss, exertional o2 sat 99% alert, nad, speaking full sentences perrl, eomi. mmm s1s2 rrr, ctab abd benign no rash neuro nl - Medical Decision Making 11/23/19 16:39 49y/o M with viral type illness including pulm/gi/msk complaints over past two weeks. non-toxic appearing and HD stable without localizing findings on exam. labs wnl, slight leukocytosis of 14 chem wnl, cxr clear ekg nl given neb and iv fluids and felt much better. covid swab sent. agrees with d/c plan, will quarantine appropriately until results come back, understands return criteria Heart Score/ECG Review #1 ECG reviewed & interpreted by me at: 16:26 General ECG Interpretation: Sinus Rhythm, Normal Rate (59), Normal Intervals (qtc 429), No acute ischemic changes Discharge - Discharge Information Problems reviewed: Yes Clinical Impression/Diagnosis: Cough Condition: Stable - Follow up/Referral - Patient Discharge Instructions - Post Discharge Activity
[2019-11-23 17:12] VITALS: BP 111/70; PULSE 60; TEMP 98.3
[2019-11-23 19:18] LABS: N-TERMINAL BNP 82.6 pg/ml (5-125)
--- NOTE | 2019-11-24 13:41 | EKG ---
Test Reason : Blood Pressure : / mmHG Vent. Rate : 059 BPM Atrial Rate : 059 BPM P-R Int : 184 ms QRS Dur : 084 ms QT Int : 434 ms P-R-T Axes : 068 074 061 degrees QTc Int : 429 ms SINUS BRADYCARDIA POSSIBLE LEFT ATRIAL ENLARGEMENT LOW VOLTAGE QRS CANNOT RULE OUT SEPTAL INFARCT , AGE UNDETERMINED ABNORMAL ECG NO PREVIOUS ECGS AVAILABLE Confirmed by DEVYN MAST MD ([id number]) on 11/24/2019 1:41:20 PM Referred By: DR VILLALBA Confirmed By:DEVYN MAST MD
== END 2019-11-23 17:13 | disposition home or self-care (01) ==
LOC: FER 14:59
PROC: 3E0F7GC Introduction of Other Therapeutic Substance into Respiratory Tract, Via Natural or Artificial Opening (ICD-10-PCS; principal; 2019-11-23)
PROC: 3E0333Z Introduction of Anti-inflammatory into Peripheral Vein, Percutaneous Approach (ICD-10-PCS; 2019-11-23)
PROC: 3E0337Z Introduction of Electrolytic and Water Balance Substance into Peripheral Vein, Percutaneous Approach (ICD-10-PCS; 2019-11-23)
DX: R06.02 Shortness of breath (principal); R19.7 Diarrhea, unspecified; R05 Cough
CPT/HCPCS: 36415; 71045-TC-FY; 80053; 82728; 83615; 83735; 83880; 84100; 84484; 85025; 85610; 85730; 86140; 93005; 99285-25; C9803; J0131; U0003